=== PATIENT | male | born 1980 | race Caucasian/White ===

== ENCOUNTER 2018-10-20 10:26 | Emergency (ER) | payer MEDICAID, OTHER | END 2018-10-20 13:36 | disposition home or self-care (01) | LOC: E/R 13:36 | DX: S29.001A Unspecified injury of muscle and tendon of front wall of thorax, initial encounter (principal); W18.39XA Other fall on same level, initial encounter; Y92.321 Football field as the place of occurrence of the external cause | CPT/HCPCS: 71100; 99283-25 ==